=== PATIENT | male | born 1955 | race Caucasian/White ===

== ENCOUNTER 2019-07-20 08:52 | Inpatient (IN) ==
[2019-07-20 09:33] LABS: Basophils % 0.2 %; Eosinophils % 0.1 %; Hematocrit 39.9 % (37.5-50.1); Hemoglobin 13.2 g/dL (12.9-16.9); Immature Granulocytes % 0.9 % (0-4); Lymphocytes # 2.7 K/mcL (0.6-4.6); Lymphocytes % 11.5 %; Mean Corpuscular HGB Conc 33.1 g/dL (31.6-35.5); Mean Corpuscular Hemoglobin 30.8 pg (28.0-33.3); Mean Platelet Volume 9.6 fL (9.4-12.4); Monocytes # 2.5 K/mcL (0.0-1.3); Monocytes % 10.7 %; Neutrophils # 17.7 K/mcL (1.6-8.9); Nucleated Red Blood Cells 0.1 /100 WBC (0); Platelet Count 702 K/mcL (140-400); Red Blood Count 4.29 M/mcL (4.19-5.50); Red Cell Distribution Width 17.7 % (11.5-14.5); Segmented Neutrophils % 76.6 %; White Blood Count 23.1 K/mcL (4.3-11.1)
[2019-07-20 09:36] LABS: Alanine Aminotransferase 15 Units/L (7-52); Albumin/Globulin Ratio 1.6 (1.1-2.2); Alkaline Phosphatase 81 Units/L (34-104); Aspartate Amino Transferase 20 Units/L (13-39); BUN/Creatinine Ratio 17 (6-26); Basophils # 0.1 K/mcL (0.0-0.2); Bilirubin,Total 0.6 mg/dL (0.3-1.0); Blood Urea Nitrogen 14 mg/dL (8-23); Calcium 9.4 mg/dL (8.6-10.3); Carbon Dioxide 34 mEq/L (23-29); Chloride 96 mEq/L (98-107); Globulin 2.5 g/dL (2.4-3.5); Glucose 137 mg/dL (70-105); Osmolality,Calculated 289 (280-300); Potassium 3.5 mEq/L (3.5-5.1); Sodium 138 mEq/L (136-145); Total Protein 6.5 g/dL (6.4-8.9); eGFR For African Americans > 60 (> 60); eGFR For Non-African Americans > 60 (> 60)
[2019-07-20 09:39] LABS: Troponin I 0.03 ng/mL (< 0.04)
[2019-07-20] MEDS ORDERED: Isovue-370 500 ML BOTTLE IVP ONE (09:46)
[2019-07-20] MEDS ORDERED: cefTRIAXone 1,000 MG in 0.9 % Sodium Chloride Mini Bag 100 ML IVPB ONE (10:16)
[2019-07-20] MEDS ORDERED: Furosemide 80 MG in 0.9 % Sodium Chloride 50 ML IV ONE (10:16)
[2019-07-20] MEDS ORDERED: Furosemide 40 MG/4 ML VIAL IVP ONE (10:29)
[2019-07-20] MEDS ORDERED: Naloxone 0.4 MG/ML INJ IVP PRN (11:50)
[2019-07-20] MEDS ORDERED: Ondansetron 4 MG/2 ML VIAL IVP PRN (11:50)
[2019-07-20] MEDS ORDERED: MOM Conc 10 ML UD.LIQ PO PRN (11:50)
[2019-07-20] MEDS: 0.9 % Sodium Chloride 1,000 ML IVC SCH (12:24)
[2019-07-20] MEDS: Azithromycin 500 MG in 0.9 % Sodium Chloride 250 ML IVPB SCH (12:24)
[2019-07-20] MEDS ORDERED: Trolamine Salicylate/Aloe Vera 85 APPL/85 GM TUBE TP PRN (12:50)
[2019-07-20 13:02] LABS: Bilirubin,Urine Negative (Negative); Blood,Urine Negative (Negative); Clarity,Urine Clear (Clear); Color,Urine Yellow (Yellow); Glucose,Urine (UA) Normal (Normal); Ketones,Urine Negative (Negative); Leukocyte Esterase,Urine Negative (Negative); Nitrite,Urine Negative (Negative); PH,Urine 7.5 pH Units (5.0-8.0); Protein,Urine Negative (Neg-Trace); Urobilinogen,Urine Normal (Normal)
[2019-07-20] MEDS: Gabapentin 400 MG CAPSULE PO SCH ×2 (15:08→22:21)
[2019-07-20] MEDS: Piperacillin/Tazobactam 3.375 GM in 0.9 % Sodium Chloride Mini Bag 100 ML IVPB SCH (15:08)
[2019-07-20] MEDS: MethylPREDNISolone 40 MG/ML VIAL IVP SCH (15:08)
[2019-07-20] MEDS: Famotidine 20 MG TABLET PO SCH (15:08)
[2019-07-20] MEDS ORDERED: Budesonide/Formoterol 160/4.5 1 PUFF INH IH ONE (16:49)
[2019-07-20] MEDS: Ipratropium/Albuterol Neb 3 ML IH SCH (16:52)
[2019-07-20] MEDS: *HR* Rivaroxaban 10 MG TABLET PO SCH (17:11)
[2019-07-20] MEDS: Budesonide/Formoterol 160/4.5 1 PUFF INH IH SCH (22:25)
[2019-07-21] MEDS: Piperacillin/Tazobactam 3.375 GM in 0.9 % Sodium Chloride Mini Bag 100 ML IVPB SCH ×4 (00:36→23:38)
[2019-07-21] MEDS: MethylPREDNISolone 40 MG/ML VIAL IVP SCH ×4 (00:37→23:37)
[2019-07-21] MEDS: Ipratropium/Albuterol Neb 3 ML IH SCH ×5 (00:37→23:37)
[2019-07-21 05:47] LABS: Basophils % 0.2 %; Hematocrit 37.5 % (37.5-50.1); Hemoglobin 12.4 g/dL (12.9-16.9); Lymphocytes # 0.7 K/mcL (0.6-4.6); Lymphocytes % 3.9 %; Mean Corpuscular HGB Conc 33.1 g/dL (31.6-35.5); Mean Corpuscular Hemoglobin 30.3 pg (28.0-33.3); Mean Corpuscular Volume 91.7 fL (83.0-100.0); Monocytes # 0.7 K/mcL (0.0-1.3); Monocytes % 3.7 %; Platelet Count 606 K/mcL (140-400); Red Blood Count 4.09 M/mcL (4.19-5.50); Red Cell Distribution Width 17.8 % (11.5-14.5); Segmented Neutrophils % 91.2 %; White Blood Count 18.6 K/mcL (4.3-11.1)
[2019-07-21] MEDS: Famotidine 20 MG TABLET PO SCH ×2 (05:48→18:21)
[2019-07-21] MEDS ORDERED: *HR* Enoxaparin 40 MG/0.4 ML SYRINGE SQ SCH (06:00)
[2019-07-21 06:12] LABS: BUN/Creatinine Ratio 17 (6-26); Blood Urea Nitrogen 15 mg/dL (8-23); Calcium 9.3 mg/dL (8.6-10.3); Carbon Dioxide 34 mEq/L (23-29); Chloride 96 mEq/L (98-107); Glucose 180 mg/dL (70-105); Magnesium 2.6 mg/dL (1.6-2.6); Osmolality,Calculated 291 (280-300); Potassium 4.5 mEq/L (3.5-5.1); Sodium 138 mEq/L (136-145); eGFR For African Americans > 60 (> 60); eGFR For Non-African Americans > 60 (> 60)
[2019-07-21] MEDS: Cholecalciferol (D-3) 1,000 UNIT (25MCG) TABLET PO SCH (08:01)
[2019-07-21] MEDS: Magnesium Oxide 400 MG TABLET PO SCH (08:02)
[2019-07-21] MEDS: Gabapentin 400 MG CAPSULE PO SCH ×3 (08:02→21:51)
[2019-07-21] MEDS: Metoprolol XL (24 HR) Succ 50 MG TAB.ER.24H PO SCH (08:02)
[2019-07-21] MEDS: *HR* Digoxin 0.125 MG TABLET PO SCH (08:03)
[2019-07-21] MEDS: *HR* Amiodarone 200 MG TABLET PO SCH (08:03)
[2019-07-21] MEDS: Cyanocobalamin (B-12) 1,000 MCG TABLET PO SCH (08:03)
[2019-07-21] MEDS: Pyridoxine (B-6) 50 MG TABLET PO SCH (08:11)
[2019-07-21] MEDS ORDERED: cefTRIAXone 1,000 MG in Water for inj. (sterile) 10 ML IVP SCH (09:00)
[2019-07-21] MEDS ORDERED: PREDNISOLONE SOD PHOSPHATE PO SCH (09:00)
[2019-07-21] MEDS ORDERED: NON-FORMULARY MEDICATION 1 EACH EACH (Tiotropium Bromide [Spiriva Respimat] 4 GM) IH SCH (09:00)
[2019-07-21] MEDS ORDERED: Furosemide 40 MG TABLET PO SCH (09:00)
[2019-07-21] MEDS: Budesonide/Formoterol 160/4.5 1 PUFF INH IH SCH ×2 (11:17→21:56)
[2019-07-21] MEDS: Azithromycin 500 MG in 0.9 % Sodium Chloride 250 ML IVPB SCH (15:18)
[2019-07-21] MEDS: *HR* Rivaroxaban 10 MG TABLET PO SCH (18:21)
[2019-07-21] MEDS ORDERED: 0.9 % Sodium Chloride 1,000 ML IVC SCH (21:00)
[2019-07-21] MEDS: 0.9 % Sodium Chloride 1,000 ML IVC SCH (21:10)
[2019-07-22] MEDS: Ipratropium/Albuterol Neb 3 ML IH SCH ×2 (05:36→10:06)
[2019-07-22] MEDS: Famotidine 20 MG TABLET PO SCH (05:36)
[2019-07-22] MEDS: *HR* Digoxin 0.125 MG TABLET PO SCH (08:25)
[2019-07-22] MEDS ORDERED: *HR* Digoxin 0.25 MG TABLET PO ONE (08:26)
[2019-07-22] MEDS: 0.9 % Sodium Chloride 1,000 ML IVC SCH (08:53)
[2019-07-22] MEDS: Cholecalciferol (D-3) 1,000 UNIT (25MCG) TABLET PO SCH (09:04)
[2019-07-22] MEDS: Gabapentin 400 MG CAPSULE PO SCH (09:05)
[2019-07-22] MEDS: Cyanocobalamin (B-12) 1,000 MCG TABLET PO SCH (09:06)
[2019-07-22] MEDS: Pyridoxine (B-6) 50 MG TABLET PO SCH (09:06)
[2019-07-22] MEDS: *HR* Amiodarone 200 MG TABLET PO SCH (09:06)
[2019-07-22] MEDS: Magnesium Oxide 400 MG TABLET PO SCH (09:06)
[2019-07-22] MEDS: Metoprolol XL (24 HR) Succ 50 MG TAB.ER.24H PO SCH (09:06)
[2019-07-22] MEDS: MethylPREDNISolone 40 MG/ML VIAL IVP SCH (09:07)
[2019-07-22] MEDS: Piperacillin/Tazobactam 3.375 GM in 0.9 % Sodium Chloride Mini Bag 100 ML IVPB SCH (09:07)
[2019-07-22] MEDS: Budesonide/Formoterol 160/4.5 1 PUFF INH IH SCH (10:06)
[2019-07-22 10:52] LABS: Hematocrit 36.4 % (37.5-50.1); Hemoglobin 11.9 g/dL (12.9-16.9); Mean Corpuscular HGB Conc 32.7 g/dL (31.6-35.5); Mean Corpuscular Hemoglobin 30.3 pg (28.0-33.3); Mean Corpuscular Volume 92.6 fL (83.0-100.0); Platelet Count 563 K/mcL (140-400); Red Blood Count 3.93 M/mcL (4.19-5.50); Red Cell Distribution Width 17.4 % (11.5-14.5); White Blood Count 24.7 K/mcL (4.3-11.1)
[2019-07-22] MEDS ORDERED: Furosemide 40 MG TABLET PO SCH (11:00)
[2019-07-22 11:01] LABS: BUN/Creatinine Ratio 25 (6-26); Blood Urea Nitrogen 21 mg/dL (8-23); Calcium 9.4 mg/dL (8.6-10.3); Carbon Dioxide 32 mEq/L (23-29); Chloride 95 mEq/L (98-107); Glucose 176 mg/dL (70-105); Osmolality,Calculated 283 (280-300); Potassium 5.1 mEq/L (3.5-5.1); Sodium 133 mEq/L (136-145); eGFR For African Americans > 60 (> 60); eGFR For Non-African Americans > 60 (> 60)
[2019-07-22 12:41] VITALS: BP 142/70
== END 2019-07-22 13:57 | disposition home or self-care (01) | DRG 194 ==
LOC: EMEROOGRE 08:52 → INPGRE 11:00
PROVIDERS: ADMIT Family Medicine; ATTEND Family Medicine

== ENCOUNTER 2020-11-22 20:42 | Observation (INO) ==
[2020-11-22] MEDS ORDERED: Ipratropium/Albuterol Neb 3 ML IH ONE (20:54)
[2020-11-22 21:30] LABS: Basophils # 0.1 K/mcL (0.0-0.2); Basophils % 0.4 %; Eosinophils # 0.3 K/mcL (0.0-0.6); Eosinophils % 1.5 %; Hematocrit 51.6 % (37.5-50.1); Hemoglobin 17.1 g/dL (12.9-16.9); Immature Granulocytes % 0.4 % (0-4); Lymphocytes % 5.8 %; Mean Corpuscular HGB Conc 33.1 g/dL (31.6-35.5); Mean Corpuscular Volume 99.6 fL (83.0-100.0); Mean Platelet Volume 10.1 fL (9.4-12.4); Monocytes # 2.2 K/mcL (0.0-1.3); Monocytes % 13.6 %; Neutrophils # 12.8 K/mcL (1.6-8.9); Platelet Count 319 K/mcL (140-400); Red Blood Count 5.18 M/mcL (4.19-5.50); Red Cell Distribution Width 14.3 % (11.5-14.5); Segmented Neutrophils % 78.3 %; White Blood Count 16.4 K/mcL (4.3-11.1)
[2020-11-22] MEDS ORDERED: Furosemide 40 MG/4 ML VIAL IVP ONE (21:30)
[2020-11-22 21:39] LABS: INR 1.2; Prothrombin Time 14.1 Seconds (9.4-12.1)
[2020-11-22 21:41] LABS: Activated Partial Thrombo Time 37.3 Seconds (26.0-36.0)
[2020-11-22] MEDS ORDERED: cefTRIAXone 1,000 MG in 0.9 % Sodium Chloride Mini Bag 100 ML IVPB ONE (21:41)
[2020-11-22 21:46] LABS: Alanine Aminotransferase 24 Units/L (7-52); Albumin 4.6 g/dL (3.5-5.7); Albumin/Globulin Ratio 1.8 (1.1-2.2); Alkaline Phosphatase 97 Units/L (34-104); Aspartate Amino Transferase 36 Units/L (13-39); BUN/Creatinine Ratio 15 (6-26); Bilirubin,Total 0.6 mg/dL (0.3-1.0); Blood Urea Nitrogen 12 mg/dL (8-23); Calcium 9.3 mg/dL (8.6-10.3); Carbon Dioxide 36 mEq/L (23-29); Chloride 84 mEq/L (98-107); Globulin 2.5 g/dL (2.4-3.5); Glucose 113 mg/dL (70-105); Magnesium 2.1 mg/dL (1.6-2.6); Osmolality,Calculated 257 (280-300); Phosphorous 3.5 mg/dL (2.7-4.5); Potassium 5.1 mEq/L (3.5-5.1); Sodium 123 mEq/L (136-145); Total Protein 7.1 g/dL (6.4-8.9); eGFR For African Americans > 60 (> 60); eGFR For Non-African Americans > 60 (> 60)
[2020-11-22 21:50] LABS: Troponin I 0.03 ng/mL (< 0.04)
[2020-11-22 21:54] LABS: ABG Base Excess 6 mEq/L (-2 to 3); ABG HCO3 35 mEq/L (21-27); ABG Oxygen Saturation 87 % (95-98); ABG PCO2 68 mmHg (35-45); ABG PH 7.32 pH Units (7.32-7.45); ABG PO2 60 mmHg (85-104); ABG TCO2 37 mEq/L (20-26)
[2020-11-22 23:28] LABS: ABG Base Excess 7 mEq/L (-2 to 3); ABG HCO3 36 mEq/L (21-27); ABG Oxygen Saturation 87 % (95-98); ABG PCO2 67 mmHg (35-45); ABG PH 7.34 pH Units (7.32-7.45); ABG PO2 59 mmHg (85-104); ABG TCO2 38 mEq/L (20-26)
[2020-11-22] MEDS ORDERED: 0.9 % Sodium Chloride 1,000 ML IVC SCH (23:50)
[2020-11-22] MEDS ORDERED: Naloxone 0.4 MG/ML INJ IVP PRN (23:50)
[2020-11-23 05:25] LABS: Basophils % 0.1 %; Hematocrit 48.7 % (37.5-50.1); Hemoglobin 16.3 g/dL (12.9-16.9); Immature Granulocytes % 0.3 % (0-4); Lymphocytes # 0.3 K/mcL (0.6-4.6); Lymphocytes % 2.5 %; Mean Corpuscular HGB Conc 33.5 g/dL (31.6-35.5); Mean Corpuscular Hemoglobin 32.7 pg (28.0-33.3); Mean Corpuscular Volume 97.6 fL (83.0-100.0); Mean Platelet Volume 10.7 fL (9.4-12.4); Monocytes # 0.3 K/mcL (0.0-1.3); Monocytes % 2.5 %; Neutrophils # 10.3 K/mcL (1.6-8.9); Platelet Count 296 K/mcL (140-400); Red Blood Count 4.99 M/mcL (4.19-5.50); Red Cell Distribution Width 14.1 % (11.5-14.5); Segmented Neutrophils % 94.6 %; White Blood Count 10.9 K/mcL (4.3-11.1)
[2020-11-23 05:43] LABS: BUN/Creatinine Ratio 18 (6-26); Blood Urea Nitrogen 15 mg/dL (8-23); Calcium 8.9 mg/dL (8.6-10.3); Carbon Dioxide 35 mEq/L (23-29); Chloride 86 mEq/L (98-107); Digoxin 0.9 ng/mL (0.8-2.0); Glucose 185 mg/dL (70-105); Osmolality,Calculated 270 (280-300); Potassium 5.1 mEq/L (3.5-5.1); Sodium 127 mEq/L (136-145); eGFR For African Americans > 60 (> 60); eGFR For Non-African Americans > 60 (> 60)
[2020-11-23] MEDS: cefTRIAXone 1,000 MG in Water for inj. (sterile) 10 ML IVPB SCH (07:55)
[2020-11-23] MEDS: *HR* Rivaroxaban 10 MG TABLET PO SCH (07:56)
[2020-11-23] MEDS: Pyridoxine (B-6) 50 MG TABLET PO SCH (07:57)
[2020-11-23] MEDS: Famotidine 20 MG TABLET PO SCH ×2 (07:57→16:07)
[2020-11-23] MEDS: Metoprolol XL (24 HR) Succ 50 MG TAB.ER.24H PO SCH (07:58)
[2020-11-23] MEDS: Gabapentin 400 MG CAPSULE PO SCH ×3 (07:58→20:05)
[2020-11-23] MEDS: Magnesium Oxide 400 MG TABLET PO SCH (07:58)
[2020-11-23] MEDS: *HR* Amiodarone 200 MG TABLET PO SCH (07:59)
[2020-11-23] MEDS: Cholecalciferol (D-3) 1,000 UNIT (25MCG) TABLET PO SCH (07:59)
[2020-11-23] MEDS: *HR* Digoxin 0.125 MG TABLET PO SCH (07:59)
[2020-11-23] MEDS: levoFLOXacin 750 MG TABLET PO SCH (07:59)
[2020-11-23] MEDS: Furosemide 40 MG TABLET PO SCH (08:00)
[2020-11-23] MEDS: Cyanocobalamin (B-12) 1,000 MCG TABLET PO SCH (08:00)
[2020-11-23] MEDS: Tiotropium 10 INH DOSE IH SCH (10:41)
[2020-11-23] MEDS: Budesonide/Formoterol 160/4.5 1 PUFF INH IH SCH ×2 (10:41→19:34)
[2020-11-23] MEDS: acetaZOLAMIDE 250 MG TABLET PO SCH ×2 (16:06→20:05)
[2020-11-24] MEDS: Famotidine 20 MG TABLET PO SCH ×2 (05:22→16:52)
[2020-11-24] MEDS: acetaZOLAMIDE 250 MG TABLET PO SCH (09:30)
[2020-11-24] MEDS: Cholecalciferol (D-3) 1,000 UNIT (25MCG) TABLET PO SCH (09:34)
[2020-11-24] MEDS: cefTRIAXone 1,000 MG in Water for inj. (sterile) 10 ML IVPB SCH (09:34)
[2020-11-24] MEDS: Magnesium Oxide 400 MG TABLET PO SCH (09:34)
[2020-11-24] MEDS: Gabapentin 400 MG CAPSULE PO SCH ×3 (09:35→22:08)
[2020-11-24] MEDS: Cyanocobalamin (B-12) 1,000 MCG TABLET PO SCH (09:35)
[2020-11-24] MEDS: levoFLOXacin 750 MG TABLET PO SCH (09:35)
[2020-11-24] MEDS: Pyridoxine (B-6) 50 MG TABLET PO SCH (09:35)
[2020-11-24] MEDS: *HR* Rivaroxaban 10 MG TABLET PO SCH (09:35)
[2020-11-24] MEDS: *HR* Amiodarone 200 MG TABLET PO SCH (09:35)
[2020-11-24] MEDS: Furosemide 40 MG TABLET PO SCH (09:35)
[2020-11-24] MEDS: Metoprolol XL (24 HR) Succ 50 MG TAB.ER.24H PO SCH (09:36)
[2020-11-24] MEDS: *HR* Digoxin 0.125 MG TABLET PO SCH (09:36)
[2020-11-24] MEDS: Tiotropium 10 INH DOSE IH SCH (10:38)
[2020-11-24] MEDS: Budesonide/Formoterol 160/4.5 1 PUFF INH IH SCH ×2 (10:39→21:33)
[2020-11-24 11:04] LABS: BUN/Creatinine Ratio 25 (6-26); Blood Urea Nitrogen 23 mg/dL (8-23); Calcium 9.1 mg/dL (8.6-10.3); Carbon Dioxide 29 mEq/L (23-29); Chloride 92 mEq/L (98-107); Glucose 102 mg/dL (70-105); Osmolality,Calculated 268 (280-300); Potassium 4.8 mEq/L (3.5-5.1); Sodium 127 mEq/L (136-145); eGFR For African Americans > 60 (> 60); eGFR For Non-African Americans > 60 (> 60)
[2020-11-24] MEDS: predniSONE 20 MG TABLET PO SCH (12:38)
[2020-11-24] MEDS: Furosemide 20 MG/2 ML VIAL IVP SCH ×2 (15:11→22:08)
[2020-11-24] MEDS ORDERED: Furosemide 20 MG/2 ML VIAL IVP SCH (21:00)
[2020-11-25] MEDS: Famotidine 20 MG TABLET PO SCH ×2 (05:23→15:15)
[2020-11-25 06:21] LABS: BUN/Creatinine Ratio 27 (6-26); Blood Urea Nitrogen 24 mg/dL (8-23); Calcium 8.9 mg/dL (8.6-10.3); Carbon Dioxide 35 mEq/L (23-29); Chloride 90 mEq/L (98-107); Glucose 108 mg/dL (70-105); Osmolality,Calculated 269 (280-300); Potassium 5.2 mEq/L (3.5-5.1); Sodium 127 mEq/L (136-145); eGFR For African Americans > 60 (> 60); eGFR For Non-African Americans > 60 (> 60)
[2020-11-25 06:29] LABS: Thyroid Stimulating Hormone 0.423 mcIU/mL (0.340-5.600)
[2020-11-25] MEDS: cefTRIAXone 1,000 MG in Water for inj. (sterile) 10 ML IVPB SCH (08:43)
[2020-11-25] MEDS: Gabapentin 400 MG CAPSULE PO SCH ×3 (08:44→22:10)
[2020-11-25] MEDS: Furosemide 20 MG/2 ML VIAL IVP SCH (08:44)
[2020-11-25] MEDS: Cyanocobalamin (B-12) 1,000 MCG TABLET PO SCH (08:45)
[2020-11-25] MEDS: predniSONE 20 MG TABLET PO SCH (08:45)
[2020-11-25] MEDS: Pyridoxine (B-6) 50 MG TABLET PO SCH (08:45)
[2020-11-25] MEDS: *HR* Digoxin 0.125 MG TABLET PO SCH (08:45)
[2020-11-25] MEDS: levoFLOXacin 750 MG TABLET PO SCH (08:45)
[2020-11-25] MEDS: *HR* Amiodarone 200 MG TABLET PO SCH (08:45)
[2020-11-25] MEDS: Magnesium Oxide 400 MG TABLET PO SCH (08:45)
[2020-11-25] MEDS: *HR* Rivaroxaban 10 MG TABLET PO SCH (08:45)
[2020-11-25] MEDS: Metoprolol XL (24 HR) Succ 50 MG TAB.ER.24H PO SCH (08:45)
[2020-11-25] MEDS: Cholecalciferol (D-3) 1,000 UNIT (25MCG) TABLET PO SCH (08:45)
[2020-11-25] MEDS: Budesonide/Formoterol 160/4.5 1 PUFF INH IH SCH ×2 (09:34→22:05)
[2020-11-25] MEDS: Tiotropium 10 INH DOSE IH SCH (09:35)
[2020-11-25] MEDS: Ipratropium/Albuterol Neb 3 ML IH SCH ×4 (15:44→22:05)
[2020-11-26] MEDS: Ipratropium/Albuterol Neb 3 ML IH SCH ×2 (04:18→08:45)
[2020-11-26 05:49] LABS: BUN/Creatinine Ratio 30 (6-26); Blood Urea Nitrogen 19 mg/dL (8-23); Calcium 8.7 mg/dL (8.6-10.3); Carbon Dioxide 37 mEq/L (23-29); Chloride 89 mEq/L (98-107); Glucose 117 mg/dL (70-105); Osmolality,Calculated 265 (280-300); Potassium 4.7 mEq/L (3.5-5.1); Sodium 126 mEq/L (136-145); eGFR For African Americans > 60 (> 60); eGFR For Non-African Americans > 60 (> 60)
[2020-11-26] MEDS: Famotidine 20 MG TABLET PO SCH (06:14)
[2020-11-26] MEDS: Budesonide/Formoterol 160/4.5 1 PUFF INH IH SCH (08:45)
[2020-11-26] MEDS: Tiotropium 10 INH DOSE IH SCH (08:46)
[2020-11-26] MEDS: Gabapentin 400 MG CAPSULE PO SCH (09:53)
[2020-11-26] MEDS: Magnesium Oxide 400 MG TABLET PO SCH (09:54)
[2020-11-26] MEDS: *HR* Rivaroxaban 10 MG TABLET PO SCH (09:54)
[2020-11-26] MEDS: predniSONE 20 MG TABLET PO SCH (09:54)
[2020-11-26] MEDS: Cyanocobalamin (B-12) 1,000 MCG TABLET PO SCH (09:54)
[2020-11-26] MEDS: Cholecalciferol (D-3) 1,000 UNIT (25MCG) TABLET PO SCH (09:54)
[2020-11-26] MEDS: Pyridoxine (B-6) 50 MG TABLET PO SCH (09:54)
[2020-11-26] MEDS: levoFLOXacin 750 MG TABLET PO SCH (09:54)
[2020-11-26] MEDS: *HR* Amiodarone 200 MG TABLET PO SCH (10:42)
[2020-11-26] MEDS: Metoprolol XL (24 HR) Succ 50 MG TAB.ER.24H PO SCH (10:43)
[2020-11-26] MEDS: *HR* Digoxin 0.125 MG TABLET PO SCH (10:43)
[2020-11-26 11:58] VITALS: BP 139/71
[2020-11-27] MEDS ORDERED: Metoprolol XL (24 HR) Succ 25 MG TAB.ER.24H PO SCH (09:00)
== END 2020-11-26 12:27 | disposition home or self-care (01) ==
LOC: INPGRE 20:42 → EMEROOGRE 20:42 → SUATTDRO 23:32 → INPGRE 11-23 00:07
PROVIDERS: ADMIT Student in an Organized Health Care Education/Training Program; ATTEND Family Medicine

== ENCOUNTER 2021-02-15 15:45 | Observation (INO) ==
[2021-02-15] MEDS ORDERED: Eucerin Cream 57 GM TUBE TP PRN (17:57)
[2021-02-15] MEDS ORDERED: NON-FORMULARY MEDICATION 1 EACH EACH (Alendronate Sodium [Fosamax] 70 MG Tablet) PO SCH (18:00)
[2021-02-15] MEDS ORDERED: Ondansetron ODT 4 MG TAB.RAPDIS SL PRN (18:02)
[2021-02-15] MEDS ORDERED: Acetaminophen 325 MG TABLET PO PRN (18:02)
[2021-02-15] MEDS ORDERED: Melatonin 3 MG TABLET PO PRN (18:02)
[2021-02-15] MEDS ORDERED: Ondansetron 4 MG/2 ML VIAL IVP PRN (18:02)
[2021-02-15] MEDS ORDERED: Mag Hydrox/Al Hydrox/Simeth 30 ML UDC PO PRN (18:02)
[2021-02-15] MEDS ORDERED: Naloxone 0.4 MG/ML INJ IVP PRN (18:02)
[2021-02-15] MEDS ORDERED: MOM Conc 10 ML UD.LIQ PO PRN (18:02)
[2021-02-15] MEDS ORDERED: Perflutren Lipid Microsphere 1.3 ML in 0.9 % Sodium Chloride 8.7 ML IVP PRN (18:11)
[2021-02-15] MEDS ORDERED: Furosemide 40 MG/4 ML VIAL IVP ONE (18:12)
[2021-02-15] MEDS: Gabapentin 300 MG CAPSULE PO SCH (21:17)
[2021-02-15] MEDS: Ipratropium/Albuterol Neb 3 ML IH SCH (21:34)
[2021-02-16] MEDS: Ipratropium/Albuterol Neb 3 ML IH SCH ×2 (04:05→08:35)
[2021-02-16] MEDS ORDERED: MethylPREDNISolone 40 MG/ML VIAL IVP SCH (06:00)
[2021-02-16 06:18] LABS: Hematocrit 45.9 % (37.5-50.1); Hemoglobin 14.7 g/dL (12.9-16.9); Mean Corpuscular Hemoglobin 33.2 pg (28.0-33.3); Mean Corpuscular Volume 103.6 fL (83.0-100.0); Mean Platelet Volume 10.4 fL (9.4-12.4); Platelet Count 370 K/mcL (140-400); Red Blood Count 4.43 M/mcL (4.19-5.50); Red Cell Distribution Width 14.9 % (11.5-14.5); White Blood Count 11.6 K/mcL (4.3-11.1)
[2021-02-16 06:38] LABS: Alanine Aminotransferase 16 Units/L (7-52); Albumin 3.6 g/dL (3.5-5.7); Albumin/Globulin Ratio 1.6 (1.1-2.2); Alkaline Phosphatase 83 Units/L (34-104); Aspartate Amino Transferase 23 Units/L (13-39); BUN/Creatinine Ratio 22 (6-26); Bilirubin,Total 0.5 mg/dL (0.3-1.0); Blood Urea Nitrogen 22 mg/dL (8-23); Calcium 8.9 mg/dL (8.6-10.3); Carbon Dioxide 40 mEq/L (23-29); Chloride 92 mEq/L (98-107); Globulin 2.2 g/dL (2.4-3.5); Glucose 138 mg/dL (70-105); Magnesium 1.7 mg/dL (1.6-2.6); Osmolality,Calculated 292 (280-300); Phosphorous 3.3 mg/dL (2.7-4.5); Potassium 3.9 mEq/L (3.5-5.1); Sodium 138 mEq/L (136-145); Total Protein 5.8 g/dL (6.4-8.9); eGFR For African Americans > 60 (> 60); eGFR For Non-African Americans > 60 (> 60)
[2021-02-16 07:05] LABS: Bilirubin,Urine Negative (Negative); Blood,Urine Negative (Negative); Clarity,Urine Slightly Cloudy (Clear); Color,Urine Yellow (Yellow); Glucose,Urine (UA) Normal (Normal); Ketones,Urine Negative (Negative); Leukocyte Esterase,Urine Negative (Negative); Nitrite,Urine Positive (Negative); Protein,Urine Negative (Neg-Trace); Specific Gravity,Urine 1.015 (1.010-1.025); Urobilinogen,Urine Normal (Normal)
[2021-02-16] MEDS ORDERED: Famotidine 20 MG TABLET PO SCH (07:30)
[2021-02-16 07:51] LABS: Bacteria,Urine Moderate per hpf (None-Few); Hyaline Casts,Urine Few per lpf (None Seen); Squamous Epithelial Cell,Urine Few per hpf (None-Few); WBC,Urine 0-3 per hpf (0-3)
[2021-02-16 08:29] VITALS: O2SAT 94
[2021-02-16] MEDS ORDERED: Sennosides 8.6 MG TABLET PO SCH (09:00)
[2021-02-16] MEDS ORDERED: *HR* Rivaroxaban 10 MG TABLET PO SCH (09:00)
[2021-02-16] MEDS ORDERED: Magnesium Oxide 400 MG TABLET PO SCH (09:00)
[2021-02-16] MEDS ORDERED: Pyridoxine (B-6) 50 MG TABLET PO SCH (09:00)
[2021-02-16] MEDS ORDERED: *HR* Amiodarone 200 MG TABLET PO SCH (09:00)
[2021-02-16] MEDS ORDERED: Cholecalciferol (D-3) 1,000 UNIT (25MCG) TABLET PO SCH (09:00)
[2021-02-16] MEDS ORDERED: Spironolactone 25 MG TABLET PO SCH (09:00)
[2021-02-16] MEDS ORDERED: Cyanocobalamin (B-12) 1,000 MCG TABLET PO SCH (09:00)
[2021-02-16] MEDS ORDERED: Torsemide 20 MG TABLET PO SCH (09:00)
[2021-02-16] MEDS: Gabapentin 300 MG CAPSULE PO SCH (09:17)
[2021-02-16] MEDS ORDERED: Tiotropium 10 INH DOSE IH SCH (10:00)
[2021-02-16 12:20] VITALS: BP 116/80; PULSE 104; RESP 16; TEMP 97.9
[2021-02-16] MEDS ORDERED: Furosemide 40 MG/4 ML VIAL IVP ONE (13:07)
[2021-02-16 14:50] LABS: Bilirubin,Urine Negative (Negative); Blood,Urine Negative (Negative); Clarity,Urine Clear (Clear); Color,Urine Yellow (Yellow); Glucose,Urine (UA) Normal (Normal); Ketones,Urine Negative (Negative); Leukocyte Esterase,Urine Negative (Negative); Nitrite,Urine Negative (Negative); Protein,Urine Negative (Neg-Trace); Specific Gravity,Urine 1.015 (1.010-1.025); Urobilinogen,Urine Normal (Normal)
== END 2021-02-16 14:51 | disposition home or self-care (01) ==
LOC: INPGRE
PROVIDERS: ADMIT Family Medicine; ATTEND Family Medicine